=== PATIENT | female | born 1970 | race Caucasian/White ===

== ENCOUNTER 2017-12-15 09:26 | Emergency (ER) | payer OTHER ==
[~2017-12-15] VITALS: Ht 165.1 cm; Wt 92.1 kg
[2017-12-15 09:28] VITALS: Ht 165.1 cm; Wt 92.1 kg
[2017-12-15 12:57] VITALS: BP 131/71
== END 2017-12-15 12:57 | disposition home or self-care (01) ==
LOC: ED 09:26
DX: M54.31 Sciatica, right side (principal); E78.00 Pure hypercholesterolemia, unspecified
CPT/HCPCS: J1885; J2270